=== PATIENT | male | born 1945 | race Two or more races ===

== ENCOUNTER 2020-04-12 12:12 | Inpatient (IN) | payer MEDICARE, MEDICAID ==
[~2020-04-12] VITALS: Ht 182.9 cm; Wt 77.6 kg
[2020-04-12] MEDS ORDERED: NITROGLYCERIN 0.4MG TABLET SL SL PRN (13:15)
[2020-04-12] MEDS ORDERED: ASPIRIN 81MG TABLET PO ONE (13:15)
[2020-04-12 13:26] LABS: BASOPHILS % 0.8 % (0.0-2.0); EOSINOPHILS % 0.8 % (0.0-5.0); HEMOGLOBIN. 14.5 g/dL (14.0-18.0); LYMPHOCYTES % 16.5 % (20.0-50.0); MEAN CORPUSCULAR HEMOGLOBIN 31.4 pg (28.0-32.0); MEAN PLATELET VOLUME 9.6 fl (7.4-10.4); MONOCYTES % 7.6 % (2.0-8.0); NEUTROPHILS % 74.3 % (40.0-76.0); PLATELET 164 x1000/uL (130-400); RED BLOOD CELL COUNT 4.61 mill/uL (4.7-6.1); RED CELL DISTRIBUTION WIDTH 15.6 % (11.6-14.6)
[2020-04-12 13:38] LABS: CHLORIDE 106 mEq/L (98-107)
[2020-04-12] MEDS ORDERED: DOCUSATE SODIUM 100MG CAPSULE PO PRN (18:00)
[2020-04-12] MEDS ORDERED: CLONIDINE 0.1MG TABLET PO PRN (18:00)
[2020-04-12] MEDS ORDERED: HYDROCODONE/ACETAMINOPHEN 5/325MG TABLET PO PRN (18:00)
[2020-04-12] MEDS ORDERED: IPRATROPIUM/ALBUTEROL 0.5-3(2.5)MG/3ML NEB HHN PRN (18:00)
[2020-04-12] MEDS ORDERED: LORAZEPAM 0.5MG TABLET PO PRN (18:00)
[2020-04-12] MEDS ORDERED: ONDANSETRON HCL 4MG/2ML INJ IV PRN (18:00)
[2020-04-12 20:33] VITALS: BP 147/77
[2020-04-12 20:41] VITALS: BP 147/77
[2020-04-12] MEDS ORDERED: FINA5TAB11 PO (22:08)
[2020-04-12] MEDS ORDERED: TAMS-11 PO (22:08)
[2020-04-12] MEDS ORDERED: MULT-1146 PO (22:08)
[2020-04-12] MEDS ORDERED: MECL-159 PO (22:08)
[2020-04-12] MEDS ORDERED: AMLO10TA4 PO (22:08)
[2020-04-12] MEDS ORDERED: ASPI-1497 PO (22:08)
[2020-04-12] MEDS ORDERED: ATOR10TA PO (22:08)
[2020-04-12 22:22] VITALS: BP 133/92
[2020-04-12 23:06] LABS: *AMPHETAMINES SCREEN URINE NEGATIVE (NEGATIVE); *BARBITURATES SCREEN URINE NEGATIVE (NEGATIVE); *BENZODIAZEPINES SCREEN URINE NEGATIVE (NEGATIVE); *COCAINE SCREEN URINE NEGATIVE (NEGATIVE); METHADONE URINE SCREEN NEGATIVE (NEGATIVE); OPIATES URINE SCREEN NEGATIVE (NEGATIVE)
[2020-04-12 23:07] LABS: CANNABINOID URINE SCREEN NEGATIVE (NEGATIVE); PHENCYCLIDINE URINE SCREEN NEGATIVE (NEGATIVE)
[2020-04-13] VITALS (12 sets, daily range): BP systolic 101–126; BP diastolic 56–87
[2020-04-13] MEDS ORDERED: ALPR0.25 PO (05:36)
[2020-04-13] MEDS ORDERED: DEXT15DR5 EACHEYE (05:36)
[2020-04-13 07:05] LABS: BASOPHILS % 0.6 % (0.0-2.0); EOSINOPHILS % 1.4 % (0.0-5.0); HEMATOCRIT. 43.9 % (42.0-52.0); HEMOGLOBIN. 15.2 g/dL (14.0-18.0); LYMPHOCYTES % 28.7 % (20.0-50.0); MEAN CORPUSCULAR HEMOGLOBIN 31.4 pg (28.0-32.0); MEAN CORPUSCULAR VOLUME 90.5 fL (80.0-94.0); MEAN PLATELET VOLUME 10.1 fl (7.4-10.4); MONOCYTES % 8.9 % (2.0-8.0); NEUTROPHILS % 60.4 % (40.0-76.0); PLATELET 164 x1000/uL (130-400); RED BLOOD CELL COUNT 4.86 mill/uL (4.7-6.1); RED CELL DISTRIBUTION WIDTH 15.3 % (11.6-14.6)
[2020-04-13 07:06] LABS: CHLORIDE 104 mEq/L (98-107)
[2020-04-13] MEDS: ACETAMINOPHEN 325MG TABLET PO PRN ×2 (07:49→21:41)
[2020-04-13] MEDS: ASPIRIN 81MG EC TABLET PO SCH (07:50)
[2020-04-13] MEDS: POLYVINYL ALCOHOL OPHTH DROPS 15ML BOTHEYE SCH ×2 (11:44→17:21)
[2020-04-13] MEDS: MULTIVITAMINS,THER W-MINERALS TABLET PO SCH (12:18)
[2020-04-13] MEDS: AMLODIPINE 10MG TABLET PO SCH (12:19)
[2020-04-13] MEDS: OMEPRAZOLE 20MG CAPSULE EXTENDED RELEASE PO SCH (21:41)
[2020-04-13] MEDS: ATORVASTATIN CALCIUM 10MG TABLET PO SCH (21:41)
[2020-04-14] VITALS (12 sets, daily range): BP systolic 103–139; BP diastolic 46–77
[2020-04-14] MEDS: POLYVINYL ALCOHOL OPHTH DROPS 15ML BOTHEYE SCH ×4 (00:14→18:35)
[2020-04-14] MEDS: OMEPRAZOLE 20MG CAPSULE EXTENDED RELEASE PO SCH (06:14)
[2020-04-14] MEDS: MULTIVITAMINS,THER W-MINERALS TABLET PO SCH (09:12)
[2020-04-14] MEDS: TAMSULOSIN HCL 0.4MG SR CAPSULE PO SCH (09:13)
[2020-04-14] MEDS: AMLODIPINE 10MG TABLET PO SCH (09:13)
[2020-04-14] MEDS: ASPIRIN 81MG EC TABLET PO SCH (09:13)
[2020-04-14] MEDS: FINASTERIDE 5MG TABLET PO SCH (09:13)
[2020-04-14] MEDS: ACETAMINOPHEN 325MG TABLET PO PRN ×2 (10:03→22:02)
[2020-04-14 12:47] LABS: BASOPHILS % 0.7 % (0.0-2.0); EOSINOPHILS % 0.5 % (0.0-5.0); HEMATOCRIT. 44.1 % (42.0-52.0); HEMOGLOBIN. 15.3 g/dL (14.0-18.0); LYMPHOCYTES % 13.9 % (20.0-50.0); MEAN CORPUSCULAR HEMOGLOBIN 31.4 pg (28.0-32.0); MEAN CORPUSCULAR VOLUME 90.4 fL (80.0-94.0); MEAN PLATELET VOLUME 10.4 fl (7.4-10.4); MONOCYTES % 6.2 % (2.0-8.0); NEUTROPHILS % 78.7 % (40.0-76.0); PLATELET 148 x1000/uL (130-400); RED BLOOD CELL COUNT 4.88 mill/uL (4.7-6.1); RED CELL DISTRIBUTION WIDTH 14.9 % (11.6-14.6)
[2020-04-14 12:53] LABS: CHLORIDE 102 mEq/L (98-107)
[2020-04-14] MEDS: ATORVASTATIN CALCIUM 10MG TABLET PO SCH (22:01)
[2020-04-14] MEDS: FAMOTIDINE 20MG TABLET PO SCH (22:02)
[2020-04-15] VITALS (10 sets, daily range): BP systolic 98–134; BP diastolic 56–77
[2020-04-15] MEDS: POLYVINYL ALCOHOL OPHTH DROPS 15ML BOTHEYE SCH ×3 (00:23→13:11)
[2020-04-15 06:32] LABS: BASOPHILS % 0.6 % (0.0-2.0); EOSINOPHILS % 1.3 % (0.0-5.0); HEMATOCRIT. 39.5 % (42.0-52.0); HEMOGLOBIN. 13.8 g/dL (14.0-18.0); LYMPHOCYTES % 28.4 % (20.0-50.0); MEAN CORPUSCULAR HEMOGLOBIN 31.4 pg (28.0-32.0); MEAN CORPUSCULAR VOLUME 90.1 fL (80.0-94.0); MEAN PLATELET VOLUME 9.9 fl (7.4-10.4); MONOCYTES % 9.6 % (2.0-8.0); NEUTROPHILS % 60.1 % (40.0-76.0); PLATELET 163 x1000/uL (130-400); RED BLOOD CELL COUNT 4.39 mill/uL (4.7-6.1); RED CELL DISTRIBUTION WIDTH 15.3 % (11.6-14.6)
[2020-04-15 06:45] LABS: CHLORIDE 105 mEq/L (98-107)
[2020-04-15] MEDS: FINASTERIDE 5MG TABLET PO SCH (08:24)
[2020-04-15] MEDS: FAMOTIDINE 20MG TABLET PO SCH (08:24)
[2020-04-15] MEDS: AMLODIPINE 10MG TABLET PO SCH (08:24)
[2020-04-15] MEDS: MULTIVITAMINS,THER W-MINERALS TABLET PO SCH (08:24)
[2020-04-15] MEDS: ASPIRIN 81MG EC TABLET PO SCH (08:24)
[2020-04-15] MEDS: TAMSULOSIN HCL 0.4MG SR CAPSULE PO SCH (08:24)
== END 2020-04-15 17:19 | DRG 48 ==
LOC: ER 12:31 → 3WST 16:17 → EDBEDREQ 16:29 → ENRESERV 18:24
PROVIDERS: ADMIT Internal Medicine; ATTEND Internal Medicine
DX: G90.8 Other disorders of autonomic nervous system (principal); I16.0 Hypertensive urgency; M94.0 Chondrocostal junction syndrome [Tietze]; R00.1 Bradycardia, unspecified; I10 Essential (primary) hypertension; E78.5 Hyperlipidemia, unspecified; N40.0 Benign prostatic hyperplasia without lower urinary tract symptoms; F41.9 Anxiety disorder, unspecified; K21.9 Gastro-esophageal reflux disease without esophagitis; I27.20 Pulmonary hypertension, unspecified; Z86.73 Personal history of transient ischemic attack (TIA), and cerebral infarction without residual deficits; Z79.82 Long term (current) use of aspirin; Z79.899 Other long term (current) drug therapy
CPT/HCPCS: 36415; 71045; 80048; 80053; 80061; 80305; 83036; 83880; 84443; 84484; 85025; 93005; 93306; 99285